=== PATIENT | male | born 1975 | race American Indian/Alaskan Native ===

== ENCOUNTER 2021-04-16 22:19 | Emergency (ER) | payer MEDICAID ==
[2021-04-16] MEDS ORDERED: ONDANSETRON 4 MG ODT TAB PO ONE (23:51)
[2021-04-17 00:23] LABS: Basophils % (Auto) 0.2 % (0.0-1.8); Hematocrit 41.1 % (35.5-45.6); Hemoglobin 13.9 gm/dl (11.8-15.2); Lymphocytes # (Auto) 1.7 K/mm3 (1.2-5.4); Lymphocytes % (Auto) 11.8 % (13.4-35.0); Mean Corpuscular HGB Conc 34 % (32-34); Mean Corpuscular Volume 86 fl (84-94); Monocytes # (Auto) 0.9 K/mm3 (0.0-0.8); Platelet Count 227 K/mm3 (140-440); Red Cell Distribution Width 14.1 % (13.2-15.2)
[2021-04-17 00:24] LABS: Alanine Aminotransferase 19 units/L (7-56); Albumin 4.8 g/dL (3.9-5); BUN/Creatinine Ratio 18; Blood Urea Nitrogen 20 mg/dL (9-20); Calcium 9.5 mg/dL (8.4-10.2); Hemolysis Index 7
[2021-04-17] MEDS ORDERED: PANTOPRAZOLE 40 MG INJ IV ONE (02:14)
[2021-04-17] MEDS ORDERED: SODIUM CHLORIDE 0.9% 1000 ML 1,000 ML IV ONE ×2 (02:14)
[2021-04-17] MEDS ORDERED: METOCLOPRAMIDE 10 MG/2 ML INJ IV ONE (02:14)
[2021-04-17] MEDS ORDERED: INSULIN REGULAR, HUMAN 100 UNITS/1 ML IV ONE (02:14)
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
[2021-04-17] MEDS ORDERED: MORPHINE 4 MG/1 ML INJ IV ONE (02:39)
--- NOTE | 2021-04-17 03:58 | Cat Scan Report ---
CT ABDOMEN AND PELVIS WITH CONTRAST INDICATION: abd pain n/v. TECHNIQUE: Axial CT images were obtained through the abdomen and pelvis after 100 cc IV contrast. All CT scans at this location are performed using CT dose reduction for ALARA by means of automated exposure contr ol. COMPARISON: None available. FINDINGS: LOWER CHEST: No significant abnormality. LIVER: No significant abnormality. GALLBLADDER: No significant abnormality. BILE DUCTS: No significant abnormality. PANCREAS: No significant abnormality. SPLEEN: No significant abnormality. ADRENALS: No significant abnormality. RIGHT KIDNEY and URETER: No significant abnormality. LEFT KIDNEY and URETER: No significant abnormality. STOMACH and SMALL BOWEL: Fluid-filled nondilated distal small bowel and right colon characteristic fo r mild gastroenteritis COLON: No significant abnormality. APPENDIX: No significant abnormality. PERITONEUM: No free fluid. No free air. No fluid collection. LYMPH NODES: No significant adenopathy. AORTA and ARTERIES: No significant abnormality. IVC and VEINS: No significant abnormality. URINARY BLADDER: No significant abnormality. REPRODUCTIVE ORGANS: No significant abnormality. ADDITIONAL FINDINGS: None. SKELETAL SYSTEM: Chronic bilateral L5 spondylolysis with 1 cm anterolisthesis L5 on S1 IMPRESSION: 1. Probable mild gastroenteritis described above 2. Chronic bilateral L5 spondylolysis with anterolisthesis L5 on S1 Signer Name: Carlos Mccarty MD Signed: 04/17/2021 3:54 AM Workstation Name: [id number]
[2021-04-17 05:52] VITALS: BP 145/77
--- NOTE | 2021-04-17 13:23 | Electrocardiograph Report ---
[facility] Test Date: 2021-04-17 Test Time: 03:11:01 Pat Name: TOBIAS ALVARENGA Department: Room: Gender: M Bodybuilder: MAURICE : 1975 Requested By: SARATH SMITH Order Number: [id number] Reading MD: Daljit Pradhan Measurements Intervals [place] Rate: 53 P: 80 WA: 136 QRS: 70 QRSD: 74 T: 56 QT: 421 QTc: 395 Interpretive Statements Sinus bradycardia No previous ECG available for comparison Electronically Signed On 04-17-2021 13:22:31 EDT by Daljit Pradhan
== END 2021-04-17 05:05 | disposition home or self-care (01) ==
LOC: ED 22:19
DX: E11.65 Type 2 diabetes mellitus with hyperglycemia (principal); R10.9 Unspecified abdominal pain; Z98.890 Other specified postprocedural states; Z87.891 Personal history of nicotine dependence
CPT/HCPCS: 36415; 74177; 80053; 82962; 85025; 93005; 96361; 96374; 96375; 99284; C9113; J2270; J2765; J7030; Q9967; J1815; Q0162

== ENCOUNTER 2021-12-20 06:51 | Emergency (ER) | payer MEDICAID ==
[2021-12-20] MEDS ORDERED: DEXTROSE 50% IN WATER (25GM) 50 ML SYRINGE IV ONE ×2 (07:19→07:20)
[2021-12-20] MEDS ORDERED: ONDANSETRON 4 MG/2 ML INJ IV ONE (07:23)
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
[2021-12-20 08:28] LABS: Basophils % (Auto) 0.4 % (0.0-1.8); Eosinophils % (Auto) 0.1 % (0.0-4.3); Hematocrit 39.9 % (35.5-45.6); Hemoglobin 12.7 gm/dl (11.8-15.2); Lymphocytes # (Auto) 0.9 K/mm3 (1.2-5.4); Lymphocytes % (Auto) 7.3 % (13.4-35.0); Mean Corpuscular HGB Conc 32 % (32-34); Mean Corpuscular Volume 87 fl (84-94); Monocytes # (Auto) 0.4 K/mm3 (0.0-0.8); Monocytes % (Auto) 3.4 % (0.0-7.3); Platelet Count 201 K/mm3 (140-440); Red Blood Count 4.59 M/mm3 (3.65-5.03); Red Cell Distribution Width 14.2 % (13.2-15.2)
[2021-12-20 08:43] LABS: Creatine Kinase MB 5.2 ng/mL (0.0-4.0)
[2021-12-20 08:44] LABS: Alanine Aminotransferase 22 units/L (7-56); Albumin 4.7 g/dL (3.9-5); BUN/Creatinine Ratio 13; Blood Urea Nitrogen 10 mg/dL (9-20); Calcium 9.3 mg/dL (8.4-10.2); Hemolysis Index 19
[2021-12-20 08:49] LABS: Free T4 (Free Thyroxine) 1.21 ng/dL (0.76-1.46)
--- NOTE | 2021-12-20 10:07 | Cat Scan Report ---
CT head/brain wo con INDICATION / CLINICAL INFORMATION: 46 years Male; Altered mental status. TECHNIQUE: Routine CT head without contrast. All CT scans at this location are performed using CT dos e reduction for ALARA by means of automated exposure control. COMPARISON: None. FINDINGS: BRAIN / INTRACRANIAL CONTENTS: No acute hemorrhage, mass effect, midline shift, hydrocephalus, or acu te, large territorial infarct. No signs of significant atrophy or chronic infarct. No significant whi te matter abnormality seen. CRANIOCERVICAL JUNCTION: No significant abnormality. ORBITS: No significant abnormality of visualized orbits. SINUSES / MASTOIDS: Mucous retention cyst/polyp is seen in the left maxillary antrum. Mild mucosal th ickening in the ethmoids. 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 IMPRESSION: 1. No focal mass, hemorrhage, hydrocephalus, or acute, large territorial infarct. Signer Name: Kamron Barnes MD, III Signed: 12/20/2021 10:03 AM Workstation Name: [email or web address]
[2021-12-20] MEDS ORDERED: METOCLOPRAMIDE 10 MG/2 ML INJ IV ONE (10:42)
[2021-12-20 11:09] VITALS: BP 135/71
== END 2021-12-20 13:18 | disposition home or self-care (01) ==
LOC: ED 06:51
DX: E11.649 Type 2 diabetes mellitus with hypoglycemia without coma (principal); Z79.899 Other long term (current) drug therapy
CPT/HCPCS: 36415; 70450; 80053; 82140; 82550; 82553; 82962; 84439; 84443; 84484; 85025; 96374; 96375; 99284; J2405; J2765; J3490; 80320; G0480